=== PATIENT | male | born 1985 | race Hispanic/Latino ===

== ENCOUNTER 2017-05-23 11:51 | Emergency (ER) | payer MEDICAID ==
[2017-05-23] MEDS ORDERED: MORPHINE ONE (11:59)
[2017-05-23] MEDS ORDERED: MORPHINE IV ONE ×2 (12:02→14:04)
--- NOTE | 2017-05-23 12:41 | XRay Report ---
Left shoulder 2 views: History: Injury to left shoulder. Findings: There is anterior dislocation noted the humeral head obed -inferior to the glenoid. No fracture. A.c. joint appears normal. Impression: Anterior dislocation.
--- NOTE | 2017-05-23 14:02 | Emergency Department Report ---
ED Upper Extremity Inj HPI - General Chief Complaint: Extremity Injury, Upper Stated Complaint: DISLOCATED SHOULDER Time Seen by Provider: 05/23/17 12:02 Source: patient, EMS Mode of arrival: Ambulatory Limitations: Physical Limitation - History of Present Illness Initial Comments: Patient with multiple episodes of dislocations in the past here with complaint of left arm dislocation. States he reached behind him and had sudden onset of pain. He obviously dislocated his left shoulder. There is a clinical defect there. No numbness tingling. Complaint: Injury to:: left -: Sudden Other Extremity Injury: Shoulder: Left Other Injuries: none Handedness: right Place: home Improves With: immobilization Worsens With: movement of extremity Context: other (reaching) Associated Symptoms: denies: numbness, neck pain - Related Data Home Medications Medication Instructions Recorded Confirmed Last Taken Methadone [Dolophine] 70 mg PO DAILY 12/14/15 12/14/15 Unknown Previous Rx's Medication Instructions Recorded Last Taken Type Naproxen [Naprosyn TAB] 500 mg PO BID PRN #30 tablet 05/23/17 Unknown Rx traMADol [Ultram 50 MG tab] 50 - 100 mg PO Q8HR PRN #20 tablet 05/23/17 Unknown Rx Allergies Allergy/AdvReac Type Severity Reaction Status Date / Time ondansetron HCl Allergy Hives Verified 12/14/15 22:26 [From Zofran (as hydrochloride)] ED Review of Systems ROS: Stated complaint: DISLOCATED SHOULDER Other details as noted in HPI Constitutional: denies: chills, fever, malaise Eyes: denies: eye pain, eye discharge, vision change ENT: denies: ear pain, throat pain Cardiovascular: denies: chest pain, palpitations Musculoskeletal: denies: back pain, joint swelling, arthralgia, myalgia ED Past Medical Hx - Past Medical History Previous Medical History?: Yes Hx Psychiatric Treatment: Yes (Drug addiction) Additional medical history: Hearing impaired, Hearing aids both ears mulitple shoulder dislocations - Surgical History Additional Surgical History: Hernia repair 2000 - Family History Family history: no significant - Social History Smoking Status: Current Every Day Smoker Substance Use Type: Other - Medications Home Medications: Home Medications Medication Instructions Recorded Confirmed Last Taken Type Methadone [Dolophine] 70 mg PO DAILY 12/14/15 12/14/15 Unknown History Naproxen [Naprosyn TAB] 500 mg PO BID PRN #30 tablet 05/23/17 Unknown Rx traMADol [Ultram 50 MG tab] 50 - 100 mg PO Q8HR PRN #20 tablet 05/23/17 Unknown Rx ED Physical Exam - General Limitations: Physical Limitation General appearance: alert, anxious - Head Head exam: Absent: atraumatic, normocephalic - Eye Eye exam: Present: normal appearance - ENT ENT exam: Present: normal exam, normal orophraynx - Neck Neck exam: Present: normal inspection - Cardiovascular Cardiovascular Exam: Present: regular rate, normal rhythm - Expanded Upper Extremity Exam Left Shoulder Exam: Present: deformity, dislocation. Absent: swelling, abrasion, laceration, crepidus Upper Arm exam: Present: normal inspection Elbow exam: Present: normal inspection, full ROM. Absent: tenderness, swelling Forearm Wrist exam: Absent: tenderness, swelling Neuro motor exam: Present: wrist extension intact, thumb opposition intact Vascular: Absent: vascular compromise - Neurological Exam Neurological exam: Present: alert, oriented X3 - Skin Skin exam: Present: warm, dry ED Course Vital Signs 05/23/17 05/23/17 05/23/17 11:53 11:57 12:03 Temperature 98.6 F 98.6 F Pulse Rate 120 H Respiratory 16 20 Rate Blood Pressure 130/90 [Right] O2 Sat by Pulse 98 100 Oximetry 05/23/17 05/23/17 12:23 14:21 Temperature Pulse Rate Respiratory 16 18 Rate Blood Pressure [Right] O2 Sat by Pulse Oximetry - Orthopedic Joint Reduction Joint #1 Consent Obtained: verbal consent Time Out Performed: Yes Side: left Joint Reduction Location: shoulder Analgesia: none Shoulder Technique Used (if applicable): scapula manipulation, other Technique Used: other Post-Reduction Neuro Exam: intact Post-Reduction Vascular Exam: intact Post Reduction X-Ray Obtained: Yes Post Reduction X-Ray Results: reduced Splint Applied: Yes Patient Tolerated Procedure: well ED Medical Decision Making - Medical Decision Making Patient with obvious left shoulder dislocation on clinical exam. X-ray confirms. Patient is requesting to be sedated. I do not feel he needs sedation. Plan to treat pain placed prone and reduce with scapular manipulation. Reduced with scapular manipulation and morphine. Plan to discharge patient home after post reduction x-ray. Critical care attestation.: If time is entered above; I have spent that time in minutes in the direct care of this critically ill patient, excluding procedure time. ED Disposition Clinical Impression: Shoulder dislocation Disposition: TO HOME OR SELFCARE Is pt being admited?: No Does the pt Need Aspirin: No Condition: Stable Instructions: Shoulder Dislocation (ED) Prescriptions: Naproxen [Naprosyn TAB] 500 mg PO BID PRN #30 tablet PRN Reason: Pain traMADol [Ultram 50 MG tab] 50 - 100 mg PO Q8HR PRN #20 tablet PRN Reason: Pain Referrals: PRIMARY CARE, [Primary Care Provider] - 3-5 Days Time of Disposition: 14:33
--- NOTE | 2017-05-23 14:20 | Admit Criteria Form ---
<JIGAR GRIMALDO - Last Filed: 05/23/17 14:18> Admission Criteria Documentation: MUSCULOSKELETAL DISEASE [facility] Clinical Indications for Admission to Inpatient Care (Place 'X' for any and all applicable criteria): Hospital admission is needed for appropriate care of the patient because of 1 or more of the following: [X ]I. Fracture, dislocation, or other musculoskeletal injury requiring inpatient care(medical) as indicated by 1 or more of the following(4)(5)(6)(7) [ ]a) Vertebral fracture requiring observation for instability or neurologic compromise (8) [ ]b) Compartment syndrome (proven or cannot be ruled out during observation level of care) (9) [ ]c) Limb-threatening injury [ ]d) Major injury requiring inpatient stabilization such as traction initiation or external fixation before internal fixation or closure of complex or open fracture [X ]e) Major injury requiring inpatient treatment after emergency or observation level care (as appropriate) [ ]f) Severe pain requiring acute inpatient management [ ]g) Injury with suspicion of abuse or neglect (eg., child, dependent elderly) [ ]II. Newly diagnosed or suspected bone, joint, or orthopedic device infection (e.g., osteomyelitis, septic arthritis) needing 1 or more of the following(1)(2)(3) [ ]a) IV antibiotics that cannot be initiated in other than inpatient setting (e.g., patient too unstable or home infusion not available) [ ]b) Device removal or replacement [ ]c) Bone or soft tissue debridement [ ]d) Joint drainage (drain placement or repetitive aspirations) [ ]III. Severe rheumatologic disease (e.g., systemic lupus erythematosus, rheumatoid arthritis) with complications or comorbidities (Also use Optimal Recovery Care Criteria or General Recovery Criteria as appropriate on the basis of predominant condition), including 1 or more of the following( 10)(11)(12)(13) [ ]a) Severe infection (e.g., TELECASTING ENGINEER infection, sepsis) (14) [ ]b) Respiratory complications, including 1 or more of the following : [ ]i) Pleural effusion with respiratory compromise [ ]ii) Pulmonary hypertension with congestive failure [ ]iii) Respiratory failure [ ]iv) Pulmonary hemorrhage (15) [ ]c) Hematologic disease, including 1 or more of the following: [ ]i) Coagulopathy with bleeding [ ]ii) Thrombosis with hypercoagulable state [ ]iii) Thrombotic thrombocytopenic purpura [ ]d) Cerebritis with seizures, psychosis, or other severe abnormalities [ ]e) Vertebral destruction with monitoring needed for cervical myelopathy& possible respiratory compromise [ ]f) Exacerbation that requires inpatient treatment (e.g., intravenous immunosuppression) (16) [ ]g) Acute renal failure [ ]h) Cerebritis with seizures, psychosis, Altered mental status, or other neurologic abnormalities [ ]i) Pericardial effusion with tamponade [ ]j) Vertebral destruction, with monitoring needed for cervical myelopathy and possible respiratory compromise [ ]IV. Severe vasculitis with complications or comorbidities (Also use Optimal Recovery Care Criteria General Recovery Criteria as appropriate on the basis of predominant condition), including 1 or more of the following(11)(12)(17)(18)(19)(20) [ ]a) Exacerbation that requires inpatient treatment (e.g., intravenous immunosuppression) (19)(21) [ ]b) Pulmonary hemorrhage (15) [ ]c) TELECASTING ENGINEER vasculitis with seizures, psychosis, Altered mental status that is severe or persistent, or other severe abnormalities (22) [ ]d) Cerebral infarction [ ]e) Gastrointestinal ischemia [ ]f) Gangrene or threatened amputation [ ]g) Renal failure (16) [ ]h) Other significant complications of vasculitis ( eg., tissue or organ ischemia, organ dysfunction ) [ ]V. Severe myopathy as indicated by 1 or more of the following (28)(29) [ ]a) New onset of airway compromise or inability to swallow [ ]b) Respiratory deterioration with observation needed for impending respiratory failure [ ]c) Exacerbation that requires inpatient treatment (e.g., intravenous immunosuppression) [ ]. Severe crystal gout (arthropathy) indicated by 1 or more of the following (23)(24) [ ]a) Severe pain requiring acute inpatient management [ ]b) Exacerbation that requires inpatient treatment (e.g., intravenous treatment) [ ]VII.Rhabdomyolysis and 1 or more of the following (25)(26)(27) [ ]a) Acute renal failure [ ]b) Need for intravenous hydration after emergency or observation level care (as appropriate) [ ]c) Inability to maintain oral hydration [ ]d) Change in mental status [ ]e) Electrolyte abnormality that remains after emergency or observation level care (as appropriate) [ ]VIII Post amputation complication, as indicated by ANY ONE of the following [ ]a) Infection [ ]b) Dehiscence [ ]c) Myodesis failure [ ]IX. Severe pain requiring acute inpatient management due to musculoskeletal condition [ ]X. Musculoskeletal Disease and ALL of the following: [ ]a) Symptom or finding for which emergency and observation care have failed or are not considered appropriate (Use General Criteria: Observation Care as appropriate) [ ]b) Presence of ANY ONE of the following [ ]i) A General Admission Criteria [ ]ii) A Pediatric General Admission Criteria The original [facility] content created by [facility] has been revised. The portions of the content which have been revised are identified through the use of italic text or in bold, and [facility] has neither reviewed nor approved the modified material. All other unmodified content is copyright [facility]. Please see references footnoted in the original [facility] edition 2016 Admission Criteria Met: Yes <AMANDA HILL - Last Filed: 05/23/17 19:49> Admission Criteria Met: No
[2017-05-23 15:12] VITALS: BP 129/78
--- NOTE | 2017-05-23 15:45 | XRay Report ---
FINAL REPORT EXAM: XR SHOULDER 1V LT HISTORY: post reduction TECHNIQUE: Single-view left shoulder. PRIORS: None currently available. FINDINGS: There is no acute fracture. There is no evidence for healing fracture. There is no acute dislocation. Joints in anatomical alignment. No significant arthrosis. There is no cortical destruction to suggest osteomyelitis. There are no suspicious osseous lesions. There are no radiopaque foreign objects. IMPRESSION: No acute osseous findings.
== END 2017-05-23 15:11 | disposition home or self-care (01) ==
LOC: ED 11:51
DX: S43.005A Unspecified dislocation of left shoulder joint, initial encounter (principal); F17.200 Nicotine dependence, unspecified, uncomplicated; Z88.8 Allergy status to other drugs, medicaments and biological substances; X58.XXXA Exposure to other specified factors, initial encounter; Y93.89 Activity, other specified; Y99.9 Unspecified external cause status; Y92.89 Other specified places as the place of occurrence of the external cause
CPT/HCPCS: 23650; 73020; 73030; 96374; 96376; 99284; J2270

== ENCOUNTER 2018-05-17 23:59 | Emergency (ER) | payer MEDICAID ==
[2018-05-18] MEDS ORDERED: TORADOL IV ONE (00:22)
[2018-05-18] MEDS ORDERED: XYLOCAINE 2% INFILTRATI ONE (00:23)
--- NOTE | 2018-05-18 00:28 | XRay Report ---
FINAL REPORT EXAM: XR SHOULDER 2+V LT HISTORY: deformity, pain, hx of dislocation. OF LEFT SHOULDER TECHNIQUE: Two views of the left shoulder were submitted and are compared to the study of 05/23/2017. FINDINGS: There is an inferior subcoracoid dislocation of the humeral head. There is no acute fracture. The AC joint appears normal. The soft tissues well maintained. IMPRESSION: Inferior subcoracoid dislocation of the humeral head.
[2018-05-18 01:02] VITALS: BP 160/110
--- NOTE | 2018-05-18 01:04 | Emergency Department Report ---
ED Extremity Problem HPI - General Chief complaint: Shoulder Injury Stated complaint: L SHOULDER PAIN Time Seen by Provider: 05/18/18 00:21 Source: patient Mode of arrival: Ambulatory Limitations: Other - History of Present Illness Initial comments: Patient is a 33-year-old male who is presenting with left shoulder dislocation. Patient states that his shoulders been out approximately 10 times. Patient states he reached behind him and shoulder dislocated. Patient states the pain is a 10 out of 10 in severity. - Related Data Home Medications Medication Instructions Recorded Confirmed Last Taken Methadone [Dolophine] 70 mg PO DAILY 12/14/15 12/14/15 Unknown Previous Rx's Medication Instructions Recorded Last Taken Type Naproxen [Naprosyn TAB] 500 mg PO BID PRN #30 tablet 05/23/17 Unknown Rx traMADol [Ultram 50 MG tab] 50 - 100 mg PO Q8HR PRN #20 tablet 05/23/17 Unknown Rx Ketorolac [Toradol] 10 mg PO Q6H PRN #12 tablet 05/18/18 Unknown Rx Allergies Allergy/AdvReac Type Severity Reaction Status Date / Time ondansetron HCl Allergy Hives Verified 12/14/15 22:26 [From Zofran (as hydrochloride)] ED Review of Systems ROS: Stated complaint: L SHOULDER PAIN Other details as noted in HPI Comment: All other systems reviewed and negative ED Past Medical Hx - Past Medical History Previous Medical History?: Yes Hx Psychiatric Treatment: Yes (Drug addiction) Additional medical history: Hearing impaired, Hearing aids both ears mulitple shoulder dislocations - Surgical History Past Surgical History?: Yes Additional Surgical History: Hernia repair 2000 - Social History Smoking Status: Former Smoker Substance Use Type: None - Medications Home Medications: Home Medications Medication Instructions Recorded Confirmed Last Taken Type Methadone [Dolophine] 70 mg PO DAILY 12/14/15 12/14/15 Unknown History Naproxen [Naprosyn TAB] 500 mg PO BID PRN #30 tablet 05/23/17 Unknown Rx traMADol [Ultram 50 MG tab] 50 - 100 mg PO Q8HR PRN #20 tablet 05/23/17 Unknown Rx Ketorolac [Toradol] 10 mg PO Q6H PRN #12 tablet 05/18/18 Unknown Rx ED Physical Exam - General Limitations: Other General appearance: alert, in no apparent distress - Head Head exam: Present: atraumatic, normocephalic - Eye Eye exam: Present: normal appearance - ENT ENT exam: Present: mucous membranes moist - Neck Neck exam: Present: normal inspection - Respiratory Respiratory exam: Present: normal lung sounds bilaterally. Absent: respiratory distress - Cardiovascular Cardiovascular Exam: Present: regular rate, normal rhythm. Absent: systolic murmur, diastolic murmur, rubs, gallop - GI/Abdominal GI/Abdominal exam: Present: soft, normal bowel sounds - Rectal Rectal exam: Present: deferred - Extremities Exam Extremities exam: Absent: normal inspection (patient has a left-sided deltoid deformity) - Back Exam Back exam: Present: normal inspection - Neurological Exam Neurological exam: Present: alert, oriented X3 - Psychiatric Psychiatric exam: Present: normal affect, normal mood - Skin Skin exam: Present: warm, dry, intact, normal color. Absent: rash ED Course Vital Signs 05/18/18 00:06 Temperature 98.6 F Pulse Rate 122 H Blood Pressure 160/110 O2 Sat by Pulse 98 Oximetry - Orthopedic Joint Reduction Joint #1 Consent Obtained: verbal consent Time Out Performed: Yes Side: left Joint Reduction Location: shoulder Analgesia: none Amount of Anesthetic Used (mls): 0 (K was ordered and drawn up to give to the patient intra-articular however the patient refused and stated after the Toradol he feels as though his pain was improved and he thinks he can do the procedure without a period) Shoulder Technique Used (if applicable): Milch Technique Used: direct manipulation Post-Reduction Neuro Exam: intact Post-Reduction Vascular Exam: intact Post Reduction X-Ray Obtained: No Splint Applied: No Patient Tolerated Procedure: well ED Medical Decision Making - Radiology Data Initial x-ray of the left shoulder shows anterior shoulder dislocation Critical care attestation.: If time is entered above; I have spent that time in minutes in the direct care of this critically ill patient, excluding procedure time. ED Disposition Clinical Impression: Shoulder dislocation Qualifiers: Encounter type: initial encounter Laterality: left Qualified Code(s): S43.005A - Unspecified dislocation of left shoulder joint, initial encounter Disposition: TO HOME OR SELFCARE Is pt being admited?: No Does the pt Need Aspirin: No Condition: Stable Instructions: Shoulder Dislocation (ED) Prescriptions: Ketorolac [Toradol] 10 mg PO Q6H PRN #12 tablet PRN Reason: Pain Referrals: SHANITA JUSTICE MD [Staff Physician] - 3-5 Days
== END 2018-05-18 01:37 | disposition home or self-care (01) ==
LOC: ED 23:59
DX: S43.035A Inferior dislocation of left humerus, initial encounter (principal); Z87.891 Personal history of nicotine dependence; Z88.8 Allergy status to other drugs, medicaments and biological substances; X50.1XXA Overexertion from prolonged static or awkward postures, initial encounter; Y93.89 Activity, other specified; Y92.89 Other specified places as the place of occurrence of the external cause; Y99.8 Other external cause status
CPT/HCPCS: 23650; 73030; 99283; J1885